=== PATIENT | male | born 1995 | race Two or more races ===

== ENCOUNTER 2022-01-17 15:47 | Emergency (ER) | payer SELFPAY ==
[~2022-01-17] VITALS: Ht 165.1 cm; Wt 72.6 kg
[2022-01-17] MEDS ORDERED: LEVETIRACETAM (250 MG) 250 MG TABLET PO ONE ×2 (18:30→18:39)
--- NOTE | 2022-01-17 18:49 | NUR ---
PATIENT AAOX3, BREATHING EVEN AND NON LABORED, REFUSED MD MANISHA AWARE
[2022-01-17] MEDS ORDERED: LACO150T2 PO (18:55)
[2022-01-17] MEDS ORDERED: LEVE500T9 PO (18:55)
[2022-01-17 19:22] VITALS: BP 110/71
--- NOTE | 2022-01-17 19:22 | NUR ---
Patient discharged to home in stable condition. Written and verbal after care instructions given. Patient verbalizes understanding of instruction.
== END 2022-01-17 19:22 | disposition home or self-care (01) ==
LOC: ER 15:50
DX: R56.9 Unspecified convulsions (principal); Z79.899 Other long term (current) drug therapy
CPT/HCPCS: 82962-TC